=== PATIENT | male | born 1960 | race Hispanic/Latino ===

== ENCOUNTER 2019-02-03 08:28 | Outpatient (CLI) | payer OTHER ==
--- NOTE | 2019-02-03 10:08 | MRI ---
EXAM: Right shoulder MRI without contrast: HISTORY: M 75. 89 Tear of right rotator cuff, right shoulder pain with decreased range of motion COMPARISON: None FINDINGS: Multiplanar, multisequence MRI examination of the shoulder is performed. A C joint:A C joint arthrosis with downsloping lateral acromion and mild fat stranding in the subacro mial bursa. Supraspinatus tendon: At least midgrade undersurface partial-thickness tear of the supraspinatus tend on insertion with associated subchondral cyst. Infraspinatus tendon: Intact. Biceps tendon: Poorly defined elongated intra-articular biceps tendon possibly split type or intersti tial tear. Subscapularis tendon: Intact. Rotator cuff muscles: Within normal limits of signal and volume. Glenoid labrum: Abnormal appearance to the superior labrum evidence for a SLAP tear. No evidence for acute osteochondral defect or significant abnormal marrow signal. IMPRESSION: At least midgrade partial-thickness undersurface insertional tear of the supraspinatus tendon. Irregular somewhat elongated appearance of the intra-articular portion of the biceps tendon evidence for a split type or interstitial tear. Evidence for SLAP tear.
== END 2019-02-03 08:29 | disposition home or self-care (01) ==
LOC: BICMRI 08:28
PROVIDERS: ATTEND Orthopaedic Surgery
DX: M75.101 Unspecified rotator cuff tear or rupture of right shoulder, not specified as traumatic (principal); S43.431A Superior glenoid labrum lesion of right shoulder, initial encounter

== ENCOUNTER 2019-07-12 06:15 | Outpatient (CLI) | payer OTHER ==
[2019-07-12 13:10] LABS: #Basophils 0.1 thou/uL (0.0-0.2); #Eosinphils 0.3 thou/uL (0.0-0.7); #Lymphocytes 2.5 thou/uL (1.20-3.40); #Monocytes 0.7 thou/uL (0.11-0.59); #Neutrophils 6.4 thou/uL (1.40-6.50); %Basophils 0.9 % (0.0-1.0); %Eosinophils 2.7 % (0.0-10.0); %Monocytes 6.6 % (0.0-10.0); %Neutrophils 64.8 % (42.0-75.0); Large Platelets SLIGHT; MDiff Complete? YES; Mean Corpuscular HGB CONC 32.9 g/dL (32.0-36.0); Mean Corpuscular Hemoglobin 29.5 pg (27.0-31.0); Mean Corpuscular Volume 89.7 fL (78.0-98.0); Mean Platelet Volume 12.8 fL (7.4-10.4); Platelet Count 125 thou/uL (130-400); Platelet Morphology Comment Appears Decreased; RBC Distribution Width 12.9 % (11.5-14.5); RBC Morphology Normal; Red Blood Cell (RBC) Count 5.43 mill/uL (4.70-6.10); White Blood Cell (WBC) Count 9.9 thou/uL (4.8-10.8)
== END 2019-07-12 06:16 | disposition home or self-care (01) ==
LOC: LABBT 06:15
PROVIDERS: ATTEND Orthopaedic Surgery
DX: Z01.812 Encounter for preprocedural laboratory examination (principal); M75.101 Unspecified rotator cuff tear or rupture of right shoulder, not specified as traumatic
CPT/HCPCS: 85025

== ENCOUNTER 2019-07-14 05:33 | Day surgery (SDC) | payer OTHER ==
[2019-07-12 09:57] VITALS: BMI 28.1
[2019-07-14] MEDS ORDERED: Midazolam HCl 2 mg/2 ml Vial ONE (06:37)
[2019-07-14] MEDS ORDERED: Fentanyl 100 MCG/2 ML VIAL ONE (06:37)
[2019-07-14] MEDS ORDERED: Ropivacaine 0.2% 550 ML 550 ML NERVE BLCK SCH (06:51)
[2019-07-14] MEDS ORDERED: traMADol HCl 50 MG TAB PO PRN ×2 (06:51)
[2019-07-14] MEDS ORDERED: Ketorolac Tromethamine 30 MG/ML VIAL IVP PRN (06:51)
[2019-07-14] MEDS ORDERED: Ondansetron PF 4 MG/2 ML Vial IVP PRN (06:51)
[2019-07-14] MEDS ORDERED: Zolpidem Tartrate 5 MG TAB PO PRN (06:51)
[2019-07-14] MEDS ORDERED: HYDROcodone/Acetaminophen 10/325 mg Tablet PO PRN ×2 (06:51)
[2019-07-14] MEDS ORDERED: Fentanyl 100 MCG/2 ML VIAL IV PRN (06:51)
[2019-07-14] MEDS ORDERED: Promethazine HCl 25 MG/ML VIAL IM PRN (06:51)
[2019-07-14] MEDS ORDERED: Lidocaine 1% w/Epinephrine 1:100K 20 ML VIAL ONE (06:52)
[2019-07-14] MEDS ORDERED: Acetaminophen 325 MG TAB PO PRN (06:52)
[2019-07-14] MEDS ORDERED: Rocuronium Bromide 10 MG/ML (10ML VIAL) ONE (09:47)
[2019-07-14] MEDS ORDERED: Ropivacaine 0.2% HCl/PF (40 MG/20 ML VIAL) ONE (09:47)
[2019-07-14] MEDS ORDERED: Lidocaine 1% PF 5 ML VIAL ONE (09:47)
[2019-07-14] MEDS ORDERED: Ondansetron PF 4 MG/2 ML Vial ONE (09:47)
[2019-07-14] MEDS ORDERED: Ropivacaine 0.5% HCl/PF (150 MG/30 ML VIAL) ONE (09:47)
[2019-07-14] MEDS ORDERED: Glycopyrrolate 0.2 MG/ML 5 ML SYRINGE ONE (09:47)
[2019-07-14] MEDS ORDERED: PROPOFOL 200 MG/20 ML VIAL ONE (09:47)
[2019-07-14] MEDS ORDERED: PHENYLEPHRINE-NS 100 MCG/ML 10 ML SYRINGE ONE (09:47)
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
== END 2019-07-14 12:10 | disposition home or self-care (01) ==
LOC: SDC 05:33
PROVIDERS: ATTEND Orthopaedic Surgery
PROC: 3E0T3BZ Introduction of Anesthetic Agent into Peripheral Nerves and Plexi, Percutaneous Approach (ICD-10-PCS; principal; 2019-07-14)
PROC: 0RBJ4ZZ Excision of Right Shoulder Joint, Percutaneous Endoscopic Approach (ICD-10-PCS; principal; 2019-07-14)
PROC: 0LS14ZZ Reposition Right Shoulder Tendon, Percutaneous Endoscopic Approach (ICD-10-PCS; principal; 2019-07-14)
PROC: 0RHJ44Z Insertion of Internal Fixation Device into Right Shoulder Joint, Percutaneous Endoscopic Approach (ICD-10-PCS; principal; 2019-07-14)
PROC: 0RNJ4ZZ Release Right Shoulder Joint, Percutaneous Endoscopic Approach (ICD-10-PCS; principal; 2019-07-14)
DX: S46.111A Strain of muscle, fascia and tendon of long head of biceps, right arm, initial encounter (principal); S43.421A Sprain of right rotator cuff capsule, initial encounter; M75.01 Adhesive capsulitis of right shoulder; S43.491A Other sprain of right shoulder joint, initial encounter; E78.00 Pure hypercholesterolemia, unspecified; Z87.891 Personal history of nicotine dependence; Z79.899 Other long term (current) drug therapy; V44.6XXA Car passenger injured in collision with heavy transport vehicle or bus in traffic accident, initial encounter
CPT/HCPCS: A4306; C1713; J0690; J2001; J2250; J2405; J2704; J2795; J3010

== ENCOUNTER 2019-07-22 04:10 | Emergency (ER) | payer SELFPAY ==
[2019-07-22] MEDS ORDERED: Meclizine HCl 25 MG TAB ONE (05:01)
== END 2019-07-22 05:27 | disposition home or self-care (01) ==
LOC: ERS 04:10
DX: R42 Dizziness and giddiness (principal); G47.00 Insomnia, unspecified; E78.00 Pure hypercholesterolemia, unspecified; Z87.891 Personal history of nicotine dependence; Z79.899 Other long term (current) drug therapy
CPT/HCPCS: 93005; J8597

== ENCOUNTER 2019-09-01 00:35 | Inpatient (IN) | payer SELFPAY ==
[2019-09-01 01:13] LABS: #Basophils 0.1 thou/uL (0.0-0.2); #Eosinphils 0.3 thou/uL (0.0-0.7); #Lymphocytes 2.9 thou/uL (1.20-3.40); #Monocytes 0.8 thou/uL (0.11-0.59); #Neutrophils 6.7 thou/uL (1.40-6.50); %Basophils 0.5 % (0.0-1.0); %Eosinophils 2.6 % (0.0-10.0); %Lymphocytes 27.1 % (21.0-51.0); %Monocytes 7.5 % (0.0-10.0); %Neutrophils 62.3 % (42.0-75.0); Hemoglobin 15.1 g/dL (14.0-18.0); Mean Corpuscular HGB CONC 33.6 g/dL (32.0-36.0); Mean Corpuscular Hemoglobin 30.4 pg (27.0-31.0); Mean Corpuscular Volume 90.5 fL (78.0-98.0); Mean Platelet Volume 11.5 fL (7.4-10.4); Platelet Count 128 thou/uL (130-400); RBC Distribution Width 12.9 % (11.5-14.5); Red Blood Cell (RBC) Count 4.97 mill/uL (4.70-6.10); White Blood Cell (WBC) Count 10.8 thou/uL (4.8-10.8)
[2019-09-01 01:31] LABS: ALT (SGPT) 70 U/L (8-55); AST (SGOT) 74 U/L (5-34); Alkaline Phosphatase 90 U/L (40-110); Anion Gap 16 mmol/L (10-20); BUN (Urea Nitrogen) 13 mg/dL (8.4-25.7); Bilirubin, Total 0.4 mg/dL (0.2-1.2); Calc. Creatinine Clearance 0 mL/min (70-130); Calcium 8.9 mg/dL (7.8-10.44); Carbon Dioxide 21 mmol/L (22-29); Chloride 107 mmol/L (98-107); Estimated GFR-MDRD 75; Globulin 2.4 g/dL (2.4-3.5); Glucose 125 mg/dL (70-105); Potassium 3.8 mmol/L (3.5-5.1); Protein, Total 6.4 g/dL (6.0-8.3); Sodium 140 mmol/L (136-145)
[2019-09-01] MEDS ORDERED: Aspirin Chewable 81 MG TAB ONE (01:38)
[2019-09-01 01:57] LABS: CKMB 23.2 ng/mL (0-6.6)
[2019-09-01 03:24] LABS: Medtox Reader # READER 4
[2019-09-01 03:25] LABS: Amphetamine Not Detected (NotDetected); Barbiturates Screen Not Detected (NotDetected); Benzodiazepine Screen Not Detected (NotDetected); Cocaine Metabolite Screen Not Detected (NotDetected); Medtox Control Line Valid? VALID (VALID); Methadone Not Detected (NotDetected); Methamphetamine Not Detected (NotDetected); Opiate Screen Not Detected (NotDetected); Oxycodone Screen Not Detected (NotDetected); Phencyclidine (PCP) Not Detected (NotDetected); THC/Cannabinoid Screen Not Detected (NotDetected); Tricyclic Screen Not Detected (NotDetected)
[2019-09-01] MEDS ORDERED: Acetaminophen 325 MG TAB PO PRN (04:05)
[2019-09-01] MEDS ORDERED: hydrALAZINE 20 MG/ML VIAL SLOW IVP PRN (04:05)
[2019-09-01] MEDS ORDERED: Enoxaparin Sodium 80 MG/0.8 ML SYRINGE SC SCH ×3 (04:15→21:00)
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
[2019-09-01] MEDS ORDERED: Enoxaparin Sodium 80 MG/0.8 ML SYRINGE ONE (05:00)
[2019-09-01 05:12] LABS: Critical Call Chem Troponin I RESULT DECREASING; Troponin I 2.161 ng/mL (< 0.028)
[2019-09-01] MEDS ORDERED: Sodium Chloride 0.9% 1,000 ML IV SCH ×2 (05:30→07:00)
--- NOTE | 2019-09-01 06:40 | CT ---
CTA CHEST WITH CONTRAST: DATE: 09/01/2019 COMPARISON: None. HISTORY: Syncope and possible seizure. Cough and inability to cath breath. TECHNIQUE: Multiple contiguous axial images were obtained in a CTA of the chest with contrast per pulmonary embo lism protocol. 3D oblique MIP reformats and direct coronal reformats were performed. FINDINGS: The pulmonary arteries are well opacified without filling defects to suggest pulmonary emboli. The he art is normal in size without focal cardiac abnormality. No hilar or mediastinal lymphadenopathy seen . Calcifications are seen in the coronary arteries. No focal infiltrates are seen in the lungs. Atelectasis is seen in the dependent lung bases. No pneum othorax or pleural effusion seen. Degenerative changes are seen in the spine. There is a 1.5 cm mass in the splenic hilum and adjacent to the tail of the pancreas. This may repres ent a splenule, but a solid pancreatic neoplasm cannot be entirely excluded. The other visualized sub diaphragmatic structures are unremarkable. IMPRESSION: 1. No evidence of pulmonary thromboembolism. 2. Bilateral dependent atelectasis. 3. Nodule adjacent to pancreatic tail and splenic hilum may represent a splenule. Either a 3-phase C T of the abdomen with arterial and venous phases or a MRI of the abdomen with and without contrast is recommended for further evaluation. POS: C
--- NOTE | 2019-09-01 07:36 | RAD ---
XR Chest 1 View Portable History: Syncope Comparison: None. Findings: Lungs are clear. No pneumothorax or effusion. Cardiac silhouette and mediastinal contours a re within normal limits. No acute osseous abnormality. Impression: No acute intrathoracic abnormality.
[2019-09-01] MEDS ORDERED: Carvedilol 3.125 MG TAB PO SCH (08:00)
[2019-09-01] MEDS ORDERED: Dextrose 5% in Water 1,000 ML IV PRN (08:11)
[2019-09-01] MEDS ORDERED: HumaLOG 300 UNITS/3 ML VIAL SC PRN (08:11)
[2019-09-01] MEDS ORDERED: Dextrose 50% Abboject 50 ML SYRINGE SLOW IVP PRN (08:11)
--- NOTE | 2019-09-01 08:23 | CT ---
PRELIMINARY REPORT/[facility]/EMERGENCY AFTER HOURS PROCEDURE: EXAM: CT scan of the brain without contrast CLINICAL HISTORY: ER 9... POSSIBLE SEIZURE; Daughter reports seeing him shaking, with his eyes closed- lasted a few min utes. TECHNIQUE: Axial computed tomography images of the head/brain without intravenous contrast. COMPARISON: None provided. FINDINGS: BRAIN: No acute intraparenchymal hemorrhage. No mass lesion. No CT evidence for acute territorial inf arct. No midline shift or extra-axial collection. Ventricles and sulci normal size. Richardson-white junc tion is intact. No mass, midline shift, hematoma. Small right frontal subdural hygroma. VENTRICLES: No hydrocephalus. ORBITS: The orbits are unremarkable. SINUSES AND MASTOIDS: The paranasal sinuses and mastoid air cells are clear. SOFT TISSUES: No significant facial or scalp soft tissue swelling evident. No radiopaque foreign body is seen. BONES: No acute skull fracture. IMPRESSION: 1. No acute intracranial abnormality. 2. Small right frontal subdural hygroma. No acute intracranial hemorrhage. ELECTRONICALLY SIGNED BY: Casa Butt D.O. Sep 01, 2019 1:46:45 AM [employer] This report is intended for review by the ordering physician only, in accordance of law. If you recei ve this report in error, please call [facility] at [phone]. FINAL REPORT EMERGENCY AFTER HOURS CT BRAIN WITHOUT CONTRAST: FINDINGS/IMPRESSION: I agree with the findings and impression given in the preliminary report per [facility] physici an. There is a chronic right frontal subdural hygroma without evidence of acute intracranial abnormality.
[2019-09-01] MEDS ORDERED: Aspirin 325 mg Enteric Coated Tablet PO SCH (09:00)
--- NOTE | 2019-09-01 09:00 | PRG ---
DATE OF SERVICE: 09/01/2019 SUBJECTIVE: The patient is seen and examined in the emergency room 25. I was called to see the patient because of some chest pain he is having. The pain is down to on a scale from 1 to 10. OBJECTIVE: VITAL SIGNS: His blood pressure is 90/62, pulse is 77, respirations 18, and O2 saturations are 91%. He is afebrile. HEENT: Head is atraumatic and normocephalic. Eyes are PERRLA. Sclerae are nonicteric. Oral mucosa is moist. NECK: Supple. LUNGS: Clear. HEART: S1 and S2 normal. No S3. No S4. ABDOMEN: Soft, nontender, and obese. EXTREMITIES: No clubbing, cyanosis or edema. NEUROLOGICAL: He is alert and oriented x4. There is no any motor or sensory deficits. LABORATORY DATA: Troponin I is up to 5.950. IMPRESSION: 1. Acute coronary syndrome. Last EKG showed normal sinus rhythm with Q-waves in lead 3, otherwise no ischemic changes. The case was discussed with kiln placer who is on-call. We will change him from telemetry to CCU. We will start him on Lovenox 1 mg/kg subcutaneous every 12 hours. He had aspirin 325 mg this morning. 2. Elevated AST and ALT of unknown etiology at this point. 3. Elevated glucose. PLAN: Change disposition to CCU. Start Lovenox. Continue aspirin. He had 3 L of IV fluids for his hypotension. Arts Manager does not want to start any vasopressor at this point. We will do Accu-Cheks every 6 hours. Job ID: [id number]
[2019-09-01] MEDS ORDERED: Iopamidol 370 76% 50 ML VIAL FS ONE (09:46)
[2019-09-01] MEDS ORDERED: Iopamidol 370 76% 100 ML VIAL ONE ×2 (09:46→13:24)
[2019-09-01] MEDS ORDERED: Fentanyl 100 MCG/2 ML VIAL ONE (12:16)
[2019-09-01] MEDS ORDERED: Midazolam HCl 2 mg/2 ml Vial ONE (12:16)
[2019-09-01] MEDS ORDERED: Heparin 10,000 UNITS/1 ML VIAL ONE (12:31)
[2019-09-01] MEDS ORDERED: TICAGRELOR 90 MG TABLET ONE (13:26)
[2019-09-01] MEDS ORDERED: Nitroglycerin 0.4 MG TAB (25 Tab Bottle) SL PRN (13:38)
[2019-09-01] MEDS ORDERED: Morphine 2 MG/ML SYRINGE SLOW IVP PRN (13:38)
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
[2019-09-01 14:49] LABS: CKMB 154.2 ng/mL (0-6.6)
[2019-09-01 16:05] LABS: Troponin I 54.368 ng/mL (< 0.028)
--- NOTE | 2019-09-01 16:59 | EKG ---
Test Reason : POST STENT Blood Pressure : / mmHG Vent. Rate : 065 BPM Atrial Rate : 065 BPM P-R Int : 148 ms QRS Dur : 078 ms QT Int : 386 ms P-R-T Axes : 062 024 037 degrees QTc Int : 401 ms Normal sinus rhythm Inferior infarct , age undetermined , possibly acute or recent Abnormal ECG When compared with ECG of 01-SEP-2019 07:56, (Unconfirmed) No significant change was found but changed from July [address] Britni LOMBARDO ([id number]) on 09/01/2019 4:58:53 PM Referred By: SAGAR Confirmed By:DR. Britni LOMBARDO
[2019-09-01 18:21] VITALS: BMI 28.4
[2019-09-01 20:09] LABS: CKMB 95.5 ng/mL (0-6.6); Critical Call CKMB RESULT DECREASING; Critical Call Chem Troponin I RESULT DECREASING; Troponin I 41.599 ng/mL (< 0.028)
[2019-09-01] MEDS: Atorvastatin Calcium 40 MG TAB PO SCH (21:00)
[2019-09-02 04:10] LABS: #Eosinphils 0.1 thou/uL (0.0-0.7); #Lymphocytes 2.9 thou/uL (1.20-3.40); #Monocytes 0.9 thou/uL (0.11-0.59); #Neutrophils 6.2 thou/uL (1.40-6.50); %Basophils 0.3 % (0.0-1.0); %Lymphocytes 28.6 % (21.0-51.0); %Monocytes 8.9 % (0.0-10.0); %Neutrophils 61.3 % (42.0-75.0); Hemoglobin 12.5 g/dL (14.0-18.0); Large Platelets SLIGHT; MDiff Complete? YES; Mean Corpuscular HGB CONC 33.2 g/dL (32.0-36.0); Mean Corpuscular Hemoglobin 29.9 pg (27.0-31.0); Mean Corpuscular Volume 90.3 fL (78.0-98.0); Mean Platelet Volume 12.1 fL (7.4-10.4); Platelet Count 110 thou/uL (130-400); Platelet Morphology Comment Appears Decreased; RBC Distribution Width 12.8 % (11.5-14.5); Red Blood Cell (RBC) Count 4.16 mill/uL (4.70-6.10); White Blood Cell (WBC) Count 10.1 thou/uL (4.8-10.8)
[2019-09-02 04:35] LABS: ALT (SGPT) 48 U/L (8-55); AST (SGOT) 65 U/L (5-34); Albumin 3.2 g/dL (3.5-5.0); Alkaline Phosphatase 71 U/L (40-110); Anion Gap 12 mmol/L (10-20); BUN (Urea Nitrogen) 13 mg/dL (8.4-25.7); Bilirubin, Total 0.5 mg/dL (0.2-1.2); Calc. Creatinine Clearance 109 mL/min (70-130); Carbon Dioxide 20 mmol/L (22-29); Cardiac Risk 5.8 (Less than 4.5); Chloride 111 mmol/L (98-107); Cholesterol 156 mg/dl (< 200 Desired); Estimated GFR-MDRD Greater than 90; Globulin 2.3 g/dL (2.4-3.5); Glucose 103 mg/dL (70-105); HDL Cholesterol 27 mg/dL (>60 Neg Risk); LDL Cholesterol, Calculated 94 mg/dL; Potassium 3.5 mmol/L (3.5-5.1); Protein, Total 5.5 g/dL (6.0-8.3); Sodium 139 mmol/L (136-145); Triglycerides 174 mg/dL (Less than 150)
--- NOTE | 2019-09-02 08:21 | PRG ---
DATE OF SERVICE: 09/02/2019 SUBJECTIVE: The patient is seen and examined at the bedside. He had cardiac catheterization done and stent placed yesterday by Dr. Lazaro. He is doing fine. He does not have much complaints to offer. No chest pain. OBJECTIVE: VITAL SIGNS: Blood pressure is 115/75, pulse is 72, respiratory rate is 16, and O2 saturation is 92% on room air. HEENT: His head is atraumatic and normocephalic. Eyes are PERRLA. Sclerae are nonicteric. Oral mucosa is moist. NECK: Supple. LUNGS: Clear. HEART: S1 and S2 normal. No S3. No S4. ABDOMEN: Soft, nontender, and nondistended. Bowel sounds present. EXTREMITIES: No clubbing, cyanosis, or edema. NEUROLOGICAL: He is alert and oriented x4. There are no any motor or sensory deficits. LABORATORY DATA: Labs showed white count of 10.1, hemoglobin of 12.5, hematocrit is 37.6, and platelet count is 210. Sodium of 139, potassium 3.5, chloride 111, CO2 of 20, BUN 13, creatinine 0.85, glucose 117, AST 65, ALT 48, and alkaline phosphatase is 71. His troponin I went up to 54.3 yesterday, this was the peak. Serum total protein 5.5, albumin 3.2, and globulin 2.3. Triglycerides 174, cholesterol 156, LDL 94, and HDL of 27. Echocardiogram showed LVEF estimated at 50% to 55% with 1/3 diastolic dysfunction, inferior hypokinesis and mildly dilated left atrium, mild mitral regurgitation and mild tricuspid regurgitation. IMPRESSION: 1. Type 2 myocardial infarction, status post cardiac cath and stent placement in right coronary artery yesterday by Dr. Lazaro. 2. Elevated AST and ALT are normalizing. 3. Elevated glucose. I suspect with some prediabetes. PLAN: Check hemoglobin A1c. Continue Lipitor, aspirin, and Plavix, and continue sliding scale with Accu-Cheks a.c. and at bedtime. The patient can be moved to telemetry today if it is okay with Cardiology. Job ID: [id number]
[2019-09-02] MEDS: Clopidogrel Bisulfate 75 MG TAB PO SCH (08:36)
[2019-09-02] MEDS: Aspirin 81 mg Enteric Coated Tablet PO SCH (08:37)
--- NOTE | 2019-09-02 14:31 | PDOC.CPN ---
- Subjective Date: 09/02/19 Time: 14:29 Interval history: He is doing well. No chest pain. - Review of Systems General: denies: fever/chills, weight/appetite/sleep changes, night sweats, fatigue Respiratory: denies: cough, congestion, shortness of breath, exercise intolerance Cardiovascular: denies: chest pain, palpitation, edema, paroxysmal nocturnal dyspnea, orthopnea Gastrointestinal: denies: nausea, vomiting, diarrhea, constipation, abd pain, GI bleeding Musculoskeletal: denies: pain, tenderness, stiffness, swelling, arthritis/ arthralgias Neurological: denies: numbness, syncope, seizure, weakness - Objective Allergies/Adverse Reactions: Allergies Allergy/AdvReac Type Severity Reaction Status Date / Time No Known Allergies Allergy Verified 09/01/19 10:56 Visit Medications: Current Medications Acetaminophen (Tylenol) 650 mg PO Q4H PRN PRN Reason: Headache/Fever/Mild Pain (1-3) Aspirin (Ecotrin) 81 mg PO DAILY [facility] Last Admin: 09/02/19 08:37 Dose: 81 mg Atorvastatin Calcium (Lipitor) 40 mg PO [facility] Last Admin: 09/01/19 21:00 Dose: Not Given Clopidogrel Bisulfate (Plavix) 75 mg PO DAILY [facility] Last Admin: 09/02/19 08:36 Dose: 75 mg Dextrose/Water (Dextrose 50%) 25 gm SLOW IVP PRN PRN PRN Reason: Hypoglycemia Glucagon (Glucagon) 1 mg IM PRN PRN PRN Reason: Hypoglycemia Hydralazine HCl (Apresoline) 10 mg SLOW IVP Q4H PRN PRN Reason: SBP > 180 and HR < 70 Dextrose/Water (D5w) 1,000 mls @ 0 mls/hr IV .Q0M PRN PRN Reason: Hypoglycemia Insulin Human Lispro (Humalog) 0 units SC .MILD SLIDING SCALE PRN PRN Reason: Mild Correctional Scale Morphine Sulfate (Morphine) 2 mg SLOW IVP Q4H PRN PRN Reason: Moderate Chest Pain (4-6) Nitroglycerin (Nitrostat) 0.4 mg SL Q5MIN PRN PRN Reason: Chest Pain Vital Signs & Weight: Vital Signs Temp Pulse Pulse Pulse Resp BP BP 09/02/19 12:05 97.9 F 80 16 09/02/19 10:31 89 93 119/74 124/65 09/02/19 09:17 09/02/19 09:02 97.7 F 88 19 09/02/19 08:00 98.7 F 09/02/19 04:00 98.8 F BP BP Pulse Ox Pulse Ox 09/02/19 12:05 110/72 96 09/02/19 10:31 97 09/02/19 09:17 93 L 09/02/19 09:02 100/69 93 L 09/02/19 08:00 95 09/02/19 04:00 Weight 181 lb 7.047 oz - Physical Exam General: alert & oriented x3 HEENT: mucus membranes moist Neck: supple neck Cardiac: regular rate and rhythm Lungs: clear to auscultation Neuro: grossly intact Abdomen: active bowel sounds Extremities: no edema Skin: clear Musculoskeletal: no pain - Labs Result Diagrams: 09/02/19 03:13 09/02/19 03:13 Troponin/CKMB CK-MB (CK-2) 95.5 ng/mL (0-6.6) H* 09/01/19 19:41 Troponin I 41.599 ng/mL (< 0.028) H* 09/01/19 19:41 - Telemetry Sinus rhythms and dysrhythmias: sinus rhythm - Assessment/Plan Assessment/Plan: 1. Acute MO 2. S/P PCI to RCA with BMS, complex proximal lesion at a 90 degree angle. 3. Ischemic CM EG at 50-55% PLAN: - Continue current meds. - Home tomorrow if remains stable. - Will add very low dose ACEI.
--- NOTE | 2019-09-02 16:45 | EKG ---
Test Reason : Blood Pressure : / mmHG Vent. Rate : 069 BPM Atrial Rate : 069 BPM P-R Int : 148 ms QRS Dur : 084 ms QT Int : 398 ms P-R-T Axes : 063 029 -47 degrees QTc Int : 426 ms Normal sinus rhythm Inferior infarct (cited on or before 01-SEP-2019) Abnormal ECG When compared with ECG of 01-SEP-2019 14:40, Non-specific change in ST segment in Inferior leads T wave inversion more evident in Inferior leads Confirmed by DR. Britni LOMBARDO ([id number]) on 09/02/2019 4:44:47 PM Referred By: SAGAR Confirmed By:DR. Britni LOMBARDO
[2019-09-02] MEDS: Atorvastatin Calcium 40 MG TAB PO SCH (20:24)
[2019-09-03 04:44] LABS: Hemoglobin A1c 6.1 % (4.0-6.0)
[2019-09-03] MEDS ORDERED: Lisinopril 2.5 MG TAB PO SCH (09:00)
[2019-09-03] MEDS: Aspirin 81 mg Enteric Coated Tablet PO SCH (09:12)
[2019-09-03] MEDS: Clopidogrel Bisulfate 75 MG TAB PO SCH (09:13)
--- NOTE | 2019-09-03 11:05 | PDOC.CPN ---
- Subjective Date: 09/03/19 Time: 11:07 Interval history: The pt seen and examined. No overnight events. No cardiac complaints. - Objective Allergies/Adverse Reactions: Allergies Allergy/AdvReac Type Severity Reaction Status Date / Time No Known Allergies Allergy Verified 09/01/19 10:56 Visit Medications: Current Medications Acetaminophen (Tylenol) 650 mg PO Q4H PRN PRN Reason: Headache/Fever/Mild Pain (1-3) Aspirin (Ecotrin) 81 mg PO DAILY [facility] Last Admin: 09/03/19 09:12 Dose: 81 mg Atorvastatin Calcium (Lipitor) 40 mg PO HS [facility] Last Admin: 09/02/19 20:24 Dose: 40 mg Clopidogrel Bisulfate (Plavix) 75 mg PO DAILY [facility] Last Admin: 09/03/19 09:13 Dose: 75 mg Dextrose/Water (Dextrose 50%) 25 gm SLOW IVP PRN PRN PRN Reason: Hypoglycemia Glucagon (Glucagon) 1 mg IM PRN PRN PRN Reason: Hypoglycemia Hydralazine HCl (Apresoline) 10 mg SLOW IVP Q4H PRN PRN Reason: SBP > 180 and HR < 70 Dextrose/Water (D5w) 1,000 mls @ 0 mls/hr IV .Q0M PRN PRN Reason: Hypoglycemia Insulin Human Lispro (Humalog) 0 units SC .MILD SLIDING SCALE PRN PRN Reason: Mild Correctional Scale Lisinopril (Zestril) 1.25 mg PO DAILY [facility] Last Admin: 09/03/19 09:12 Dose: 1.25 mg Morphine Sulfate (Morphine) 2 mg SLOW IVP Q4H PRN PRN Reason: Moderate Chest Pain (4-6) Nitroglycerin (Nitrostat) 0.4 mg SL Q5MIN PRN PRN Reason: Chest Pain Vital Signs & Weight: Vital Signs Temp Pulse Pulse Pulse Resp BP BP 09/03/19 09:18 91 81 110/72 09/03/19 09:12 86 120/73 09/03/19 07:17 98.5 F 73 16 09/03/19 03:43 98.7 F 70 17 BP BP Pulse Ox 09/03/19 09:18 114/70 09/03/19 09:12 09/03/19 07:17 115/76 97 09/03/19 03:43 110/65 96 Weight 181 lb 7.047 oz - Physical Exam General: alert & oriented x3 HEENT: mucus membranes moist Neck: supple neck Cardiac: regular rate and rhythm, bradycardia Lungs: clear to auscultation Neuro: cranial nerve 2-12 intact - Labs Result Diagrams: 09/02/19 03:13 09/02/19 03:13 Troponin/CKMB CK-MB (CK-2) 95.5 ng/mL (0-6.6) H* 09/01/19 19:41 Troponin I 41.599 ng/mL (< 0.028) H* 09/01/19 19:41 - Telemetry Sinus rhythms and dysrhythmias: sinus rhythm - Assessment/Plan Assessment/Plan: 1. Acute ME 2. S/P PCI to RCA with BMS, complex proximal lesion at a 90 degree angle - on Lisinopril 2.5mg 1/2 tab daily, ASA, Plavix and Lipitor; will start Coreg 3.125mg 1/2 tab BID from now; if he can tolerate it, the pt can be d/bailey. 3. Ischemic CM EG at 50-55% 4. HLD - on Statin MAR reviewesd * will start Coreg 3.125mg 1/2 tab BID from now; * From Cardiac standpoint, the pt is stable to d/c if his VS is stable * The pt will f/u with Dr Lazaro in 2 wks.
[2019-09-03] MEDS ORDERED: Carvedilol 3.125 MG TAB PO SCH (12:15)
[2019-09-03 15:54] VITALS: BP 123/86; TEMP 98
[2019-09-03] MEDS ORDERED: Carvedilol 6.25 MG TAB PO SCH (17:00)
--- NOTE | 2019-09-04 00:53 | EKG ---
Test Reason : Blood Pressure : / mmHG Vent. Rate : 084 BPM Atrial Rate : 084 BPM P-R Int : 160 ms QRS Dur : 078 ms QT Int : 358 ms P-R-T Axes : 053 032 016 degrees QTc Int : 423 ms Normal sinus rhythm Possible Inferior infarct , age undetermined Abnormal ECG Confirmed by STEVE TORRES ([id number]), social media editor CAPO SOLER ([id number]) on 09/04/2019 12:52:51 AM Referred By: Confirmed By:STEVE TORRES
--- NOTE | 2019-09-05 11:47 | DIS ---
DATE OF ADMISSION: 09/01/2019 DATE OF DISCHARGE: 09/03/2019 DISCHARGE DISPOSITION: Home. PRIMARY DISCHARGE DIAGNOSES: Acute myocardial infarction, status post percutaneous coronary intervention to right coronary artery and bare-metal stent; ischemic cardiomyopathy; and dyslipidemia. PROCEDURES DONE DURING HOSPITALIZATION: CT angio chest done showed no evidence of PE. CT incidentally showed possible splenule, which needs further workup as outpatient via primary care physician. CT brain showed no acute intracranial abnormality. Small right frontal subdural hygroma was seen. No acute intracranial hemorrhage was seen. Cardiac catheterization done by Dr. Lazaro on 09/01/2019, showed severe proximal RCA heavily calcified lesion, status post percutaneous coronary angioplasty to proximal right coronary artery with a bare-metal stent, and a bare-metal stent was placed. There was inferior hypokinesis seen. Echo with 2D Doppler showed an EF of 50% to 55% with inferior wall hypokinesis. H and H 12 and 37, platelet count 110, MCV is 90. HbA1c 6.1. Troponin I was elevated peaking up to 54.36. CK-MB was elevated up to 154.2. Albumin 3.2. Total cholesterol 156, triglycerides 174, LDL 94, HDL 27. BUN 13, creatinine 0.8. BNP 76. Urine drug screen was negative. DISCHARGE MEDICATIONS: 1. Omeprazole 40 mg daily. 2. Trazodone 50 mg p.o. at bedtime. 3. Aspirin 81 mg p.o. daily. 4. Lipitor 40 mg p.o. at bedtime. 5. Plavix 75 mg p.o. daily. 6. Coreg 1.56 mg p.o. twice daily. 7. Lisinopril 1.25 mg p.o. daily. ALLERGIES: NO KNOWN DRUG ALLERGIES. INPATIENT CONSULT: Dr. Lazaro for Cardiology. DISCHARGE PLAN: The patient to follow up with his primary care physician, Dr. Hughes on 09/05/2019, at 11:15 a.m., and Dr. aLzaro in 2 weeks. BRIEF COURSE DURING HOSPITALIZATION: The patient initially came to ER after he passed out with shortness of breath. Initial troponin was elevated. An initial CT brain was negative for any acute bleed or stroke. The patient was admitted to telemetry and has had serial troponin done which was elevated, which kept escalating. He has had Cardiology consultation with Dr. Lazaro. The patient has had a bare-metal stent placed to RCA, the culprit lesion. Postprocedure, he has remained hemodynamically stable. Prior to discharge, he was ambulating and eating well. He was counseled with regard to medication compliance and followups and dietary compliance. The patient's systolic blood pressure runs around 110/72. In view of this, half a dose of Coreg 3.125 mg twice daily and half a dose of 5 mg lisinopril, that is 2.5 mg daily was given in addition to aspirin and Plavix. He needs to follow up with Dr. Lazaro in 2 weeks. Please note, I have seen and examined the patient on the day of discharge. Job ID: [id number]
== END 2019-09-03 17:23 | disposition home or self-care (01) | DRG 249 ==
LOC: ERS 00:35 → ERHOLD 02:25 → OBSVTOIN 02:25 → CCU 09:18 → 2NO 09-02 09:02
PROVIDERS: ADMIT Internal Medicine; ATTEND Internal Medicine
PROC: 02703DZ Dilation of Coronary Artery, One Artery with Intraluminal Device, Percutaneous Approach (ICD-10-PCS; principal; 2019-09-01)
PROC: 4A023N7 Measurement of Cardiac Sampling and Pressure, Left Heart, Percutaneous Approach (ICD-10-PCS; 2019-09-01)
PROC: B2111ZZ Fluoroscopy of Multiple Coronary Arteries using Low Osmolar Contrast (ICD-10-PCS; 2019-09-01)
PROC: B2151ZZ Fluoroscopy of Left Heart using Low Osmolar Contrast (ICD-10-PCS; 2019-09-01)
DX: I21.A1 Myocardial infarction type 2 (principal); I25.5 Ischemic cardiomyopathy; E78.5 Hyperlipidemia, unspecified; K21.9 Gastro-esophageal reflux disease without esophagitis; Z87.891 Personal history of nicotine dependence; Z79.899 Other long term (current) drug therapy
CPT/HCPCS: 36415; 36416; 70450; 71045; 71275; 80053; 80061; 80306; 82553; 83036; 83880; 84484; 85025; 85347; 92928; 93005; 93010; 93306; 93458; 93798; 94760; 99152; 99153; C1769; C1876; C1887; J1644; J1650; J2250; J3010; J7050; Q9967

== ENCOUNTER 2021-11-23 11:24 | Emergency (ER) | payer OTHER, MEDICARE ==
[~2021-11-23 11:24] MED LIST: Iopamidol-370 76% 500 ML 1 ML ONE
[2021-11-23 12:28] LABS: #Basophils 0.1 thou/uL (0.0-0.2); #Eosinphils 0.3 thou/uL (0.0-0.7); #Lymphocytes 2.5 thou/uL (1.20-3.40); #Monocytes 0.7 thou/uL (0.11-0.59); #Neutrophils 5.4 thou/uL (1.40-6.50); %Basophils 1.1 % (0.0-1.0); %Lymphocytes 27.7 % (21.0-51.0); %Monocytes 7.6 % (0.0-10.0); %Neutrophils 60.6 % (42.0-75.0); Hemoglobin 15.3 g/dL (14.0-18.0); Mean Corpuscular HGB CONC 32.2 g/dL (32.0-36.0); Mean Corpuscular Hemoglobin 30.2 pg (27.0-31.0); Mean Corpuscular Volume 93.8 fL (78.0-98.0); Mean Platelet Volume 12.7 fL (7.4-10.4); Platelet Count 55 thou/uL (130-400); RBC Distribution Width 13.6 % (11.5-14.5); Red Blood Cell (RBC) Count 5.09 mill/uL (4.70-6.10); White Blood Cell (WBC) Count 8.9 thou/uL (4.8-10.8)
[2021-11-23 12:41] LABS: ALT (SGPT) 62 U/L (8-55); AST (SGOT) 49 U/L (5-34); Albumin 3.8 g/dL (3.4-4.8); Alkaline Phosphatase 191 U/L (40-110); Anion Gap 12 mmol/L (10-20); BUN (Urea Nitrogen) 16 mg/dL (8.4-25.7); Bilirubin, Total 1.6 mg/dL (0.2-1.2); Calc. Creatinine Clearance 0 mL/min (70-130); Calcium 8.7 mg/dL (7.8-10.44); Carbon Dioxide 21 mmol/L (23-31); Chloride 109 mmol/L (98-107); Globulin 3.4 g/dL (2.4-3.5); Glucose 138 mg/dL (80-115); Potassium 3.8 mmol/L (3.5-5.1); Protein, Total 7.2 g/dL (5.8-8.1); Sodium 138 mmol/L (136-145)
[2021-11-23 14:15] LABS: Bilirubin Negative (Negative); Blood, Urine Negative (Negative); Clarity Clear (Clear); Glucose, Urine (Dipstick) Normal (Negative); Ketone, Urine Negative (Negative); Leukocyte Negative Leu/uL (Negative); Nitrite Negative (Negative); Protein, Urine (Dipstick) Negative (Neg-Trace); Specific Gravity, Urine 1.009 (1.002-1.036); Urobilinogen Normal mg/dL (Less than 2)
== END 2021-11-23 15:15 | disposition home or self-care (01) ==
LOC: ERS 11:24
DX: S20.214A Contusion of middle front wall of thorax, initial encounter (principal); K74.60 Unspecified cirrhosis of liver; Z87.891 Personal history of nicotine dependence; V89.2XXA Person injured in unspecified motor-vehicle accident, traffic, initial encounter
CPT/HCPCS: 36415; 71260; 74177; 80053; 81003; 84484; 85025; 93005; Q9967

== ENCOUNTER 2021-12-08 22:07 | Inpatient (IN) | payer MEDICARE ==
[2021-12-08] MEDS ORDERED: Morphine 4 MG/ML VIAL ONE (23:21)
[2021-12-08] MEDS ORDERED: Ondansetron PF 4 MG/2 ML Vial ONE (23:21)
[2021-12-08 23:37] LABS: Hemoglobin 15.6 g/dL (14.0-18.0); Mean Corpuscular Hemoglobin 29.8 pg (27.0-31.0); Mean Corpuscular Volume 93.3 fL (78.0-98.0); RBC Distribution Width 13.9 % (11.5-14.5); Red Blood Cell (RBC) Count 5.24 mill/uL (4.70-6.10); White Blood Cell (WBC) Count 9.3 thou/uL (4.8-10.8)
[2021-12-08 23:42] LABS: ALT (SGPT) 74 U/L (8-55); AST (SGOT) 58 U/L (5-34); Albumin 4.2 g/dL (3.4-4.8); Alkaline Phosphatase 246 U/L (40-110); Anion Gap 14 mmol/L (10-20); BUN (Urea Nitrogen) 18 mg/dL (8.4-25.7); Bilirubin, Total 1.2 mg/dL (0.2-1.2); Calc. Creatinine Clearance 0 mL/min (70-130); Calcium 8.9 mg/dL (7.8-10.44); Carbon Dioxide 21 mmol/L (23-31); Chloride 107 mmol/L (98-107); Globulin 3.5 g/dL (2.4-3.5); Glucose 138 mg/dL (80-115); Lipase 18 U/L (8-78); Potassium 4.1 mmol/L (3.5-5.1); Protein, Total 7.7 g/dL (5.8-8.1); Sodium 138 mmol/L (136-145)
[2021-12-08 23:45] LABS: Band 2 % (5-11); Eosinophils 1 % (0-10); Large Platelets SLIGHT; Lymphocytes 24 % (21-51); MDiff Complete? YES; Mean Platelet Volume 13.7 fL (7.4-10.4); Monocytes 7 % (0-10); Neutrophil 65 % (42-75); Platelet Count 56 thou/uL (130-400); Platelet Morphology Comment Appears Decreased; RBC Morphology Normal; Reactive Lymphocytes 1 % (0-10)
[2021-12-09] MEDS ORDERED: Promethazine HCl 12.5 MG in Sodium Chloride 0.9% 50 ML IVPB SCH (01:15)
[2021-12-09] MEDS ORDERED: Pantoprazole 40 MG VIAL ONE (02:16)
[2021-12-09 02:42] LABS: Bacteria/HPF None Seen HPF (None Seen); Bilirubin Negative (Negative); Blood, Urine Trace (Negative); Clarity Clear (Clear); Glucose, Urine (Dipstick) Normal (Negative); Ketone, Urine Negative (Negative); Leukocyte Negative Leu/uL (Negative); Nitrite Negative (Negative); Protein, Urine (Dipstick) Negative (Neg-Trace); Specific Gravity, Urine 1.034 (1.002-1.036); Squamous Epithelial None Seen HPF (0-3); Urobilinogen Normal mg/dL (Less than 2); WBC/HPF None Seen HPF (0-3); pH, Urine 6.5 (5.0-9.0)
[2021-12-09 02:46] LABS: INR-International Normal Ratio 1.1; PTT 35.2 sec (22.9-36.1); Prothrombin Time 14.6 sec (12.0-14.7)
[2021-12-09] MEDS ORDERED: Acetaminophen 650 MG Suppository PR PRN (03:24)
[2021-12-09] MEDS ORDERED: Acetaminophen 325 MG TAB PO PRN (03:24)
[2021-12-09] MEDS ORDERED: Ondansetron ODT 4 MG TAB PO PRN (03:24)
[2021-12-09] MEDS ORDERED: Ondansetron PF 4 MG/2 ML Vial IVP PRN (03:24)
[2021-12-09] MEDS ORDERED: Labetalol HCl 100 MG/20 ML VIAL SLOW IVP PRN (03:31)
[2021-12-09 04:52] VITALS: BMI 28.7
[2021-12-09] MEDS ORDERED: hydrALAZINE 20 MG/ML VIAL SLOW IVP PRN (04:56)
[2021-12-09] MEDS: Dextrose 5 % And 0.9 % NaCl 1,000 ML IV SCH ×2 (05:23→15:49)
[2021-12-09 05:46] LABS: #Basophils 0.1 thou/uL (0.0-0.2); #Eosinphils 0.1 thou/uL (0.0-0.7); #Lymphocytes 2.1 thou/uL (1.20-3.40); #Monocytes 1.1 thou/uL (0.11-0.59); %Basophils 0.8 % (0.0-1.0); %Eosinophils 1.3 % (0.0-10.0); %Monocytes 9.7 % (0.0-10.0); %Neutrophils 70.3 % (42.0-75.0); Mean Corpuscular HGB CONC 33.2 g/dL (32.0-36.0); Mean Corpuscular Hemoglobin 30.7 pg (27.0-31.0); Mean Corpuscular Volume 92.3 fL (78.0-98.0); Mean Platelet Volume 12.5 fL (7.4-10.4); Platelet Count 52 thou/uL (130-400); RBC Distribution Width 13.8 % (11.5-14.5); Red Blood Cell (RBC) Count 4.56 mill/uL (4.70-6.10); White Blood Cell (WBC) Count 11.4 thou/uL (4.8-10.8)
[2021-12-09 06:10] LABS: Anion Gap 10 mmol/L (10-20); BUN (Urea Nitrogen) 16 mg/dL (8.4-25.7); Calc. Creatinine Clearance 109 mL/min (70-130); Calcium 8.3 mg/dL (7.8-10.44); Carbon Dioxide 19 mmol/L (23-31); Chloride 110 mmol/L (98-107); Glucose 106 mg/dL (80-115); Potassium 4.2 mmol/L (3.5-5.1); Sodium 135 mmol/L (136-145)
[2021-12-09] MEDS ORDERED: Piperacillin/Tazobactam 3.375 GM in Sodium Chloride 0.9% 100 ML IVPB SCH (18:15)
[2021-12-09] MEDS: Piperacillin/Tazobactam 3.375 GM in Sodium Chloride 0.9% 100 ML IVPB SCH (21:33)
[2021-12-10] MEDS: Piperacillin/Tazobactam 3.375 GM in Sodium Chloride 0.9% 100 ML IVPB SCH ×3 (05:05→22:13)
[2021-12-10 06:31] LABS: #Basophils 0.1 thou/uL (0.0-0.2); #Eosinphils 0.2 thou/uL (0.0-0.7); #Lymphocytes 2.1 thou/uL (1.20-3.40); #Monocytes 0.6 thou/uL (0.11-0.59); %Basophils 1.1 % (0.0-1.0); %Eosinophils 3.7 % (0.0-10.0); %Lymphocytes 35.3 % (21.0-51.0); %Monocytes 9.8 % (0.0-10.0); %Neutrophils 50.1 % (42.0-75.0); Hemoglobin 14.2 g/dL (14.0-18.0); Mean Corpuscular HGB CONC 33.3 g/dL (32.0-36.0); Mean Corpuscular Hemoglobin 31.4 pg (27.0-31.0); Mean Corpuscular Volume 94.3 fL (78.0-98.0); Mean Platelet Volume 12.8 fL (7.4-10.4); Platelet Count 41 thou/uL (130-400); Platelet Morphology Comment Appears Decreased; RBC Distribution Width 13.9 % (11.5-14.5); Red Blood Cell (RBC) Count 4.52 mill/uL (4.70-6.10); White Blood Cell (WBC) Count 6.1 thou/uL (4.8-10.8)
[2021-12-10 06:35] LABS: ALT (SGPT) 55 U/L (8-55); AST (SGOT) 42 U/L (5-34); Albumin 3.3 g/dL (3.4-4.8); Alkaline Phosphatase 131 U/L (40-110); Anion Gap 11 mmol/L (10-20); BUN (Urea Nitrogen) 12 mg/dL (8.4-25.7); Bilirubin, Total 1.8 mg/dL (0.2-1.2); Calc. Creatinine Clearance 89 mL/min (70-130); Calcium 8.1 mg/dL (7.8-10.44); Carbon Dioxide 22 mmol/L (23-31); Chloride 110 mmol/L (98-107); Globulin 2.9 g/dL (2.4-3.5); Glucose 89 mg/dL (80-115); Iron Binding Capacity, Total 329 mcg/dL (261-462); Potassium 3.8 mmol/L (3.5-5.1); Protein, Total 6.2 g/dL (5.8-8.1); Sodium 139 mmol/L (136-145)
[2021-12-10 06:49] LABS: Ferritin 41.28 ng/mL (22-322)
[2021-12-10 07:03] LABS: HBSAg Index 0.23 S/CO (0-0.99); Hep A IgM AB Non-Reactive (NonReactive); Hep A IgM S/CO 0.58 S/CO (0-0.79); Hep B Surf Ag Non-Reactive S/CO (NonReactive); Hep C IgG Ab Non-Reactive (NonReactive); Hep C Index 0.11 S/CO (0-0.79); Hepatitis B Core IgM Abs Non-Reactive (NonReactive)
[2021-12-10] MEDS ORDERED: PROPOFOL 200 MG/20 ML VIAL ONE (10:17)
[2021-12-10] MEDS ORDERED: Lidocaine 1% PF 5 ML VIAL ONE (10:17)
[2021-12-10] MEDS: Pantoprazole 40 MG VIAL IVP SCH (11:30)
[2021-12-10] MEDS: Carvedilol 3.125 MG TAB PO SCH (16:12)
[2021-12-11] MEDS: Piperacillin/Tazobactam 3.375 GM in Sodium Chloride 0.9% 100 ML IVPB SCH (05:26)
[2021-12-11 09:34] VITALS: BP 134/82; TEMP 97.8
[2021-12-11] MEDS: Pantoprazole 40 MG VIAL IVP SCH (09:58)
[2021-12-11] MEDS: Carvedilol 3.125 MG TAB PO SCH (09:58)
[2021-12-12 15:58] LABS: ANA Symphony (Qualitative) POSITIVE (Negative); CENP IgG Antibody Less than 0.4 EliAU/mL (<7 Negative); EliA Vaculitis New Method **** NEW METHOD ****; Jo-1 IgG Antibody Less than 0.3 EliAU/mL (<7 Negative); Mitochondrial Ab 1.9 U/mL (<4 Negative); RNP70 IgG Antibody Less than 0.3 EliAU/mL (<7 Negative); SSA/Ro IgG Antibody 0.6 EliAU/mL (<7 Negative); SSB/La IgG Antibody Less than 0.3 EliAU/mL (<7 Negative); Scleroderma-70 IgG Antibody Less than 0.6 EliAU/mL (<7 Negative); Smith D IgG Antibody 5.3 EliAU/mL (<7 Negative); dsDNA IgG Antibody 1.8 IU/mL (<10 Negative)
== END 2021-12-11 15:39 | disposition home or self-care (01) | DRG 433 ==
LOC: ERS 22:07 → MSONC 12-09 02:45 → OBSVTOIN 12-10 15:56
PROVIDERS: ADMIT Student in an Organized Health Care Education/Training Program; ATTEND Internal Medicine
PROC: 0DB78ZX Excision of Stomach, Pylorus, Via Natural or Artificial Opening Endoscopic, Diagnostic (ICD-10-PCS; principal; 2021-12-10)
DX: K74.60 Unspecified cirrhosis of liver (principal); K76.6 Portal hypertension; I85.10 Secondary esophageal varices without bleeding; Z20.822 Contact with and (suspected) exposure to COVID-19; K31.89 Other diseases of stomach and duodenum; K80.20 Calculus of gallbladder without cholecystitis without obstruction; D69.59 Other secondary thrombocytopenia; Z79.82 Long term (current) use of aspirin; Z79.899 Other long term (current) drug therapy
CPT/HCPCS: 36415; 71045; 74177; 76705; 80048; 80053; 80074; 81003; 81015; 82105; 82271; 82390; 82728; 83516; 83550; 83690; 83880; 84484; 85025; 85610; 85730; 86015; 86038; 86225; 86235; 88305; 88342; 93005; C9113; J2270; J2405; J2543; J2550; J2704; J3490; J7042; U0003; U0005

== ENCOUNTER 2022-04-16 08:58 | Outpatient (CLI) | payer MEDICARE | END 2022-04-16 08:59 | disposition home or self-care (01) | LOC: MRI 08:58 | PROVIDERS: ATTEND Orthopaedic Surgery | DX: M75.111 Incomplete rotator cuff tear or rupture of right shoulder, not specified as traumatic (principal); M77.8 Other enthesopathies, not elsewhere classified; M65.811 Other synovitis and tenosynovitis, right shoulder ==

== ENCOUNTER 2022-08-13 09:58 | Outpatient (CLI) | payer MEDICARE ==
[2022-08-13] MEDS ORDERED: Magnevist 469MG/ML 20 ML VIAL ONE (15:17)
== END 2022-08-13 09:59 | disposition home or self-care (01) ==
LOC: MRI 09:58
PROVIDERS: ATTEND Physician Assistant Medical
DX: K74.60 Unspecified cirrhosis of liver (principal); K86.2 Cyst of pancreas
CPT/HCPCS: 74183; A9579

== ENCOUNTER 2023-04-17 06:56 | Outpatient (CLI) | payer MEDICARE | END 2023-04-17 06:57 | disposition home or self-care (01) | LOC: BICULT 06:56 | PROVIDERS: ATTEND Physician Assistant Medical | DX: K21.9 Gastro-esophageal reflux disease without esophagitis (principal); K74.60 Unspecified cirrhosis of liver; I85.00 Esophageal varices without bleeding | CPT/HCPCS: 76705 ==

== ENCOUNTER 2023-09-11 09:11 | Outpatient (CLI) | payer MEDICARE ==
[2023-09-11] MEDS ORDERED: Iopamidol 370 76% 100 ML VIAL ONE (13:01)
== END 2023-09-11 09:12 | disposition home or self-care (01) ==
LOC: CT 09:11
PROVIDERS: ATTEND Physician Assistant Medical
DX: I85.00 Esophageal varices without bleeding (principal); K74.60 Unspecified cirrhosis of liver; K21.9 Gastro-esophageal reflux disease without esophagitis; K86.2 Cyst of pancreas
CPT/HCPCS: 74160; 82565; Q9967

== ENCOUNTER 2024-04-07 06:53 | Outpatient (CLI) | payer MEDICARE | END 2024-04-07 06:54 | disposition home or self-care (01) | LOC: BICULT 06:53 | PROVIDERS: ATTEND Physician Assistant Medical | DX: K74.60 Unspecified cirrhosis of liver (principal); I85.10 Secondary esophageal varices without bleeding; K86.2 Cyst of pancreas | CPT/HCPCS: 76705 ==

== ENCOUNTER 2024-07-25 07:11 | Outpatient (CLI) | payer MEDICARE | END 2024-07-25 07:12 | disposition home or self-care (01) | LOC: RAD 07:11 | PROVIDERS: ATTEND Family Medicine | DX: R05.3 Chronic cough (principal); J84.9 Interstitial pulmonary disease, unspecified | CPT/HCPCS: 71046 ==

== ENCOUNTER 2025-06-09 09:42 | Outpatient (CLI) | payer MEDICARE | END 2025-06-09 09:43 | disposition home or self-care (01) | LOC: MRI 09:42 | PROVIDERS: ATTEND Internal Medicine Gastroenterology | DX: K80.20 Calculus of gallbladder without cholecystitis without obstruction (principal); R16.0 Hepatomegaly, not elsewhere classified; K74.60 Unspecified cirrhosis of liver; I85.00 Esophageal varices without bleeding; K86.2 Cyst of pancreas | CPT/HCPCS: 74183 ==